=== PATIENT | male | born 1975 | race Caucasian/White ===

== ENCOUNTER 2020-01-03 20:06 | Emergency (ER) | payer OTHER, MEDICAID ==
[~2020-01-03] VITALS: Ht 167.6 cm; Wt 81.6 kg
[2020-01-03 20:15] VITALS: BP 122/72
[2020-01-03] MEDS: KETOROLAC 30 MG/ML VIAL IM ONE (21:37)
[2020-01-03] MEDS: HYDROcodone/APAP 5/325 MG 1 TAB TAB PO ONE (21:38)
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
[2020-01-03 21:53] VITALS: BP 122/72
--- NOTE | 2020-01-03 21:54 | NUR ---
Patient discharged with v/s stable. Written and verbal after care instructions given and explained. Patient alert, oriented and verbalized understanding of instructions. Ambulatory with steady gait. All questions addressed prior to discharge. ID band removed. Patient advised to follow up with PMD. Rx of MEDROL, IBUPROFEN given. Patient educated on indication of medication including possible reaction and side effects. Opportunity to ask questions provided and answered. PTS GIRLFRIEND WILL BE DRIVING HIM HOME.
== END 2020-01-03 21:54 | disposition home or self-care (01) ==
LOC: MED 20:06
DX: S39.012A Strain of muscle, fascia and tendon of lower back, initial encounter (principal); M54.2 Cervicalgia; M54.10 Radiculopathy, site unspecified; Z90.49 Acquired absence of other specified parts of digestive tract; V89.2XXA Person injured in unspecified motor-vehicle accident, traffic, initial encounter; Y93.89 Activity, other specified; Y92.488 Other paved roadways as the place of occurrence of the external cause; Y99.8 Other external cause status
CPT/HCPCS: 96372; 99283; J1885

== ENCOUNTER 2022-04-20 20:15 | Emergency (ER) | payer MEDICAID ==
[~2022-04-20] VITALS: Ht 165.1 cm; Wt 88.5 kg
[2022-04-20 20:44] VITALS: BP 140/89
--- NOTE | 2022-04-21 00:37 | NUR ---
Dr. Marion examining patient.
[2022-04-21 00:40] VITALS: BP 136/82
--- NOTE | 2022-04-21 00:40 | NUR ---
Patient discharged with v/s stable. Written and verbal after care instructions given and explained by Dr. Marion. Patient alert, oriented and verbalized understanding of instructions. Ambulatory with steady gait. All questions addressed prior to discharge. ID band removed. Patient advised to follow up with PMD. Rx of Naproxen and Hydrocortisone Acetate given. Patient educated on indication of medication including possible reaction and side effects. Opportunity to ask questions provided and answered.
[2022-04-21] MEDS ORDERED: NAPR-54 PO (00:43)
[2022-04-21] MEDS ORDERED: HYDR25SU91 RC (00:43)
== END 2022-04-21 00:40 | disposition home or self-care (01) ==
LOC: MED 20:15
DX: K64.4 Residual hemorrhoidal skin tags (principal); K21.9 Gastro-esophageal reflux disease without esophagitis; F41.9 Anxiety disorder, unspecified; Z98.890 Other specified postprocedural states; Z88.4 Allergy status to anesthetic agent
CPT/HCPCS: 99282